=== PATIENT | male | born 1985 | race Caucasian/White ===

== ENCOUNTER 2021-10-02 10:12 | Emergency (ER) | payer MEDICAID ==
[~2021-10-02] VITALS: Ht 175.3 cm; Wt 195.0 kg
[2021-10-02 10:48] VITALS: BP 181/111
[2021-10-02] MEDS ORDERED: LIDOCAINE 2% 1000 MG/50 ML VIAL INJ ONE (11:10)
--- NOTE | 2021-10-02 11:10 | NUR ---
35YO MALE PT C/O / SHARP/THROBBING PAIN IN L INDEX FINGER. 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 PT DENIES LOSS OF SENSATION, HAS LIMITED ROM WITH DISCOMFORT. FINGER TENDER TO TOUCH. DENIES CHEST PAIN, N/V/D OR ANY OTHER INJURY. PT HAS BP OF 180/111 , REPORTS HTN BUT DENIES HAVING MEDICATION. PT STATES INCREASE IN PAIN IN HERNIA DUE TO " SCARE ". PT AAOX4, RESPIRATIONS EVEN AND UNLABORED. HX: HTN, HERNIA NKA
--- NOTE | 2021-10-02 11:13 | NUR ---
XRAY AT BEDSIDE
[2021-10-02] MEDS ORDERED: HYDROcodone/APAP 5/325 MG 1 TAB TAB PO ONE (12:30)
[2021-10-02] MEDS ORDERED: IBUPROFEN 600 MG TAB PO ONE (12:30)
[2021-10-02] MEDS ORDERED: IBUP-1842 PO (13:46)
[2021-10-02] MEDS ORDERED: BACTO TP (13:46)
[2021-10-02] MEDS ORDERED: ACET-9527 PO ×2 (13:46→13:47)
[2021-10-02] MEDS ORDERED: AMOX1TAB8 PO (13:46)
[2021-10-02] MEDS ORDERED: BACITRACIN OINT 500 UNITS/GM PKT TP ONE (14:05)
--- NOTE | 2021-10-02 14:06 | NUR ---
APPLIED A ALUMINIUM SHORT FINGER SPLINT TO THE PT'S INDEX FINGER OF THE LEFT HAND. WRAPPED SPLINT WITH 2 INCH KENDAL WRAP. + CMS BEFORE/AFTER. PT DID NOT COMPLAIN OF ANY PAIN OR DISCOMFORT.
--- NOTE | 2021-10-02 14:07 | NUR ---
Patient discharged with v/s stable. Written and verbal after care instructions FOR LACERATION AND CRASH INJURY OF HEAD given and explained. Patient alert, oriented and verbalized understanding of instructions. Ambulatory with steady gait. All questions addressed prior to discharge. ID band removed. Patient advised to follow up with PMD. Rx of HYDROCODONE/ACETAMINOPHEN, AMOXICILLIN, MUPIROCIN, AND IBUPROFEN given. Opportunity to ask questions provided and answered.
[2021-10-02 14:09] VITALS: BP 136/93
--- NOTE | 2021-10-02 14:55 | NUR ---
The patient's care was reviewed and supervised by [facility], RN.
== END 2021-10-02 14:07 | disposition home or self-care (01) ==
LOC: MED 10:12
DX: S61.211A Laceration without foreign body of left index finger without damage to nail, initial encounter (principal); I10 Essential (primary) hypertension; E66.9 Obesity, unspecified; X58.XXXA Exposure to other specified factors, initial encounter; Y93.89 Activity, other specified; Y92.89 Other specified places as the place of occurrence of the external cause; Y99.8 Other external cause status
CPT/HCPCS: 12001; 73140; 90471; 90715; 99284; J2001